=== PATIENT | male | born 1970 | race Caucasian/White ===

== ENCOUNTER 2022-02-15 16:04 | Outpatient (CLI) | payer BC, SELFPAY ==
[2022-02-15 21:29] LABS: Chloride* 102 mmol/L (96-114); Potassium* 4.1 mmol/L (3.6-5.1); Sodium* 139 mmol/L (135-149)
[2022-02-15 21:32] LABS: Blood Urea Nitrogen* 19 mg/dL (7-30); Carbon Dioxide* 31 mmol/L (20-32); Creatinine* 1.2 mg/dL (0.5-1.5); Estimated Glomerular Filt Rate 72.76; Glucose* 82 mg/dL (60-115); Phosphorus* 3.3 mg/dL (2.5-4.5); Uric Acid* 5.8 mg/dL (2.2-8.4)
[2022-02-15 21:58] LABS: Creatinine Urine 88.6 mg/dL
[2022-02-15 22:03] LABS: Microalbumin Creatinine Ratio 130 mg/g (0-30); Microalbumin Urine 12 mg/dL
== END 2022-02-15 16:05 | disposition home or self-care (01) ==
PROVIDERS: Visit Provider Internal Medicine Nephrology
DX: M06.9 Rheumatoid arthritis, unspecified (principal); R80.9 Proteinuria, unspecified
CPT/HCPCS: 80069; 82043; 82570; 84550

== ENCOUNTER 2022-07-27 22:31 | Outpatient (REF) | payer BC, SELFPAY ==
[2022-07-27 23:08] LABS: Basophils Absolute Auto 0.03 K/uL (0.00-0.30); Basophils Percent Auto 0.6 % (0.0-3.0); Eosinophils Absolute Auto 0.19 K/uL (0.00-0.50); Eosinophils Percent Auto 3.6 % (0.0-7.0); Hematocrit 41.4 % (37.0-53.0); Hemoglobin* 13.7 gm/dL (13.5-17.5); Immature Granulocytes Abs Auto 0.02 K/uL (0.00-0.30); Immature Granulocytes Pct Auto 0.4 %; Lymphocytes Absolute Auto 1.27 K/uL (0.90-2.90); Lymphocytes Percent Auto 23.8 % (20-44); Mean Corpuscular HGB Conc 33 gm/dL (32-36); Mean Corpuscular Hemoglobin 32 pg (26-34); Mean Corpuscular Volume 98 fL (80-100); Monocytes Percent Auto 11.4 % (0.0-11.0); Neutrophils Absolute Auto 3.22 K/uL (1.7-7.0); Neutrophils Percent Auto 60.2 % (42.0-72.0); Platelet Count* 224 K/uL (140-440); RDW Coefficient of Variation % 12.6 % (11.5-15.5); Red Blood Count 4.24 m/uL (4.30-5.90); White Blood Count* 5.34 K/uL (4.50-11.00)
[2022-07-27 23:13] LABS: Slide Review Reflex No
[2022-07-27 23:16] LABS: Albumin* 4.3 g/dL (3.3-5.0)
[2022-07-27 23:18] LABS: Creatinine* 1.4 mg/dL (0.5-1.5); Estimated Glomerular Filt Rate 60 ml/min
[2022-07-27 23:19] LABS: Alanine Aminotransferase* 26 U/L (4-50); Aspartate Amino Transferase* 28 U/L (12-35)
== END 2022-07-27 22:32 | disposition home or self-care (01) ==
LOC: NPINS 22:31
PROVIDERS: PCP Internal Medicine Rheumatology; Referring Provider Internal Medicine Rheumatology; Visit Provider Internal Medicine Rheumatology
DX: Z79.899 Other long term (current) drug therapy (principal)
CPT/HCPCS: 82040; 82565; 84450; 84460; 85025

== ENCOUNTER 2023-02-13 07:55 | Outpatient (CLI) | payer BC, SELFPAY | END 2023-02-13 07:56 | disposition home or self-care (01) | LOC: NFLDREF 15:38 | PROVIDERS: PCP Internal Medicine Rheumatology; Referring Provider Internal Medicine Rheumatology; Visit Provider Internal Medicine Nephrology | DX: N18.1 Chronic kidney disease, stage 1 (principal); M06.9 Rheumatoid arthritis, unspecified | CPT/HCPCS: 80069; 82043; 82570; 84550; 86140 ==

== ENCOUNTER 2024-03-05 12:50 | Outpatient (CLI) | payer BC, SELFPAY ==
--- OUTSIDE RECORDS SUMMARY | 2024-03-06 09:22 | XMS_ITS | Continuity of Care Document ---
Author Organization [facility] Address [address] [place] [address] Phone Care Team Providers Care Plater Hot Dip Name Role Phone Juan Steen MD Unavailable Unavailable Allergies, Adverse Reactions, Alerts Substance Reaction Status Criticality No Known Allergies Active No Inform ation Medications Medication Instructions Dosage Effective Dates (start - stop) Status Comments Methotrexate Sodium Oral Tablet 2.5 MG TAKE 4 TABLETS BY MOUTH ONCE WEEKLY - Active Folic Acid Oral Tablet 1 MG TAKE ONE TABLET BY MOUTH IN THE MORNING - Active Procedures Procedure Date Office/Outpatient Visit, Est Complex e/m visit add on Office/Outpatient Visit, Est Routine Venipuncture Assay Of Serum Albumin Assay Of Creatinine Transferase (Ast) (Sgot) Alanine Amino (Alt) (Sgpt) Complete Cbc, Automated Office/Outpatient Visit, Est Routine Venipuncture Assay Of Serum Albumin Assay Of Creatinine Transferase (Ast) (Sgot) Alanine Amino (Alt) (Sgpt) Complete Cbc, Automated Office/Outpatient Visit, Est Routine Venipuncture Assay Of Serum Albumin Assay Of Creatinine Transferase (Ast) (Sgot) Alanine Amino (Alt) (Sgpt) Complete Cbc, Automated Routine Venipuncture Assay Of Serum Albumin Assay Of Creatinine Transferase (Ast) (Sgot) Alanine Amino (Alt) (Sgpt) Complete Cbc WAuto Diff Wbc Office/Outpatient Visit, Est Routine Venipuncture Rbc Sed Rate, Automated Assay Of Serum Albumin Assay Of Creatinine Transferase (Ast) (Sgot) Alanine Amino (Alt) (Sgpt) CReactive Protein Complete Cbc, Automated Office/Outpatient Visit, Est Routine Venipuncture Assay Of Serum Albumin Assay Of Creatinine Transferase (Ast) (Sgot) Alanine Amino (Alt) (Sgpt) Complete Cbc, Automated Office/Outpatient Visit, Est Routine Venipuncture Assay Of Serum Albumin Assay Of Creatinine Transferase (Ast) (Sgot) Alanine Amino (Alt) (Sgpt) Complete Cbc, Automated Office/Outpatient Visit, Est Routine Venipuncture Assay Of Serum Albumin Assay Of Creatinine Transferase (Ast) (Sgot) Alanine Amino (Alt) (Sgpt) Complete Cbc, Automated Office/Outpatient Visit, Est Routine Venipuncture Assay Of Serum Albumin Assay Of Creatinine Transferase (Ast) (Sgot) Alanine Amino (Alt) (Sgpt) Complete Cbc, Automated Office/Outpatient Visit, Est Routine Venipuncture Assay Of Serum Albumin Assay Of Creatinine Transferase (Ast) (Sgot) Alanine Amino (Alt) (Sgpt) Complete Cbc, Automated Office/Outpatient Visit, Est Routine Venipuncture Rbc Sed Rate, Nonautomated Assay Of Serum Albumin Assay Of Creatinine Transferase (Ast) (Sgot) Alanine Amino (Alt) (Sgpt) CReactive Protein Complete Cbc, Automated Office/Outpatient Visit, Est Routine Venipuncture Assay Of Serum Albumin Assay Of Creatinine Transferase (Ast) (Sgot) Alanine Amino (Alt) (Sgpt) Complete Cbc, Automated Office/Outpatient Visit, Est Routine Venipuncture Assay Of Serum Albumin Assay Of Creatinine Transferase (Ast) (Sgot) Alanine Amino (Alt) (Sgpt) Complete Cbc, Automated Office/Outpatient Visit, Est Routine Venipuncture Assay Of Serum Albumin Assay Of Creatinine Transferase (Ast) (Sgot) Alanine Amino (Alt) (Sgpt) Complete Cbc, Automated Office/Outpatient Visit, Est Routine Venipuncture Assay Of Serum Albumin Assay Of Creatinine Transferase (Ast) (Sgot) Alanine Amino (Alt) (Sgpt) Complete Cbc, Automated Office/Outpatient Visit, Est Routine Venipuncture Specimen Handling Assay Of Serum Albumin Assay Of Creatinine Transferase (Ast) (Sgot) Alanine Amino (Alt) (Sgpt) Complete Cbc, Automated Office/Outpatient Visit, Est Routine Venipuncture Assay Of Serum Albumin Assay Of Creatinine Transferase (Ast) (Sgot) Alanine Amino (Alt) (Sgpt) Complete Cbc, Automated Office/Outpatient Visit, Est Routine Venipuncture Assay Of Serum Albumin Assay Of Creatinine Transferase (Ast) (Sgot) Alanine Amino (Alt) (Sgpt) Complete Cbc, Automated Office/Outpatient Visit, Est Routine Venipuncture Assay Of Serum Albumin Assay Of Creatinine Transferase (Ast) (Sgot) Alanine Amino (Alt) (Sgpt) Complete Cbc, Automated Office/Outpatient Visit, Est Routine Venipuncture Complete Cbc, Automated Assay Of Serum Albumin Assay Of Creatinine Transferase (Ast) (Sgot) Alanine Amino (Alt) (Sgpt) Office/Outpatient Visit, Est Routine Venipuncture Complete Cbc, Automated Assay Of Serum Albumin Assay Of Creatinine Transferase (Ast) (Sgot) Alanine Amino (Alt) (Sgpt) Office/Outpatient Visit, Est Routine Venipuncture Complete Cbc, Automated Assay Of Serum Albumin Assay Of Creatinine Transferase (Ast) (Sgot) Alanine Amino (Alt) (Sgpt) Office/Outpatient Visit, Est Routine Venipuncture Complete Cbc, Automated Assay Of Serum Albumin Assay Of Creatinine Transferase (Ast) (Sgot) Alanine Amino (Alt) (Sgpt) Office/Outpatient Visit, Est Routine Venipuncture Complete Cbc, Automated Assay Of Serum Albumin Assay Of Creatinine Transferase (Ast) (Sgot) Alanine Amino (Alt) (Sgpt) Office/Outpatient Visit, Est Routine Venipuncture Complete Cbc WAuto Diff Wbc Assay Of Serum Albumin Assay Of Creatinine Transferase (Ast) (Sgot) Alanine Amino (Alt) (Sgpt) Office/Outpatient Visit, Est Routine Venipuncture Complete Cbc WAuto Diff Wbc Assay Of Serum Albumin Assay Of Creatinine Transferase (Ast) (Sgot) Alanine Amino (Alt) (Sgpt) Office/Outpatient Visit, Est Routine Venipuncture Complete Cbc WAuto Diff Wbc Assay Of Serum Albumin Assay Of Creatinine Transferase (Ast) (Sgot) Alanine Amino (Alt) (Sgpt) Office/Outpatient Visit, Est Routine Venipuncture Complete Cbc WAuto Diff Wbc Assay Of Serum Albumin Assay Of Creatinine Transferase (Ast) (Sgot) Alanine Amino (Alt) (Sgpt) Office/Outpatient Visit, Est Routine Venipuncture Complete Cbc WAuto Diff Wbc Assay Of Serum Albumin Assay Of Creatinine Transferase (Ast) (Sgot) Alanine Amino (Alt) (Sgpt) Office/Outpatient Visit, Est Routine Venipuncture Complete Cbc WAuto Diff Wbc Assay Of Serum Albumin Assay Of Creatinine Transferase (Ast) (Sgot) Alanine Amino (Alt) (Sgpt) Office/Outpatient Visit, Est Routine Venipuncture Complete Cbc WAuto Diff Wbc Assay Of Serum Albumin Assay Of Creatinine Transferase (Ast) (Sgot) Alanine Amino (Alt) (Sgpt) Office/Outpatient Visit, Est Routine Venipuncture Complete Cbc WAuto Diff Wbc Assay Of Serum Albumin Assay Of Creatinine Transferase (Ast) (Sgot) Alanine Amino (Alt) (Sgpt) Office/Outpatient Visit, Est Routine Venipuncture Complete Cbc WAuto Diff Wbc Assay Of Serum Albumin Assay Of Creatinine Transferase Ast Sgot Alanine Amino (Alt) (Sgpt) Office/Outpatient Visit, Est Routine Venipuncture Complete Cbc WAuto Diff Wbc Assay Of Serum Albumin Assay Of Creatinine Transferase Ast Sgot Alanine Amino Alt Sgpt Office/Outpatient Visit, Est Routine Venipuncture Complete Cbc WAuto Diff Wbc Assay Of Serum Albumin Assay Of Creatinine Transferase Ast Sgot Alanine Amino Alt Sgpt Office/Outpatient Visit, Est Routine Venipuncture Complete Cbc WAuto Diff Wbc Assay Of Serum Albumin Assay Of Creatinine Transferase Ast Sgot Alanine Amino Alt Sgpt Office/Outpatient Visit, Est Routine Venipuncture Complete Cbc WAuto Diff Wbc Assay Of Serum Albumin Assay Of Creatinine Transferase Ast Sgot Alanine Amino Alt Sgpt Office/Outpatient Visit, Est X-Ray Exam Of Foot 2v XRay Exam Of Hand 3v Routine Venipuncture Specimen Handling CReactive Protein Complete Cbc WAuto Diff Wbc Rbc Sed Rate, Nonautomated Assay Of Serum Albumin Assay Of Creatinine Transferase Ast Sgot Alanine Amino Alt Sgpt Office/Outpatient Visit, [facility] Results Test Name Date and Time Measure Units Reference Range Abnormal Flag Status Comments Panel Description: CBC no diff - [place] Final WBC 4 10:29:00 4.2 K/uL 4.0-10.0 Final RBC 4 10:29:00 4.55 M/uL 4.50-6.50 Final Hemoglobin 4 10:29:00 14.9 g/dL 13.0-17.0 Final Hematocrit 4 10:29:00 44.5 % 40.0-54.0 Final MCV 4 10:29:00 98 fL 80-100 Final MCH 4 10:29:00 32.8 pg 27.0-32.0 H Final MCHC 4 10:29:00 33.6 g/dL 32.0-36.0 Final RDW 4 10:29:00 12.2 % 11.0-16.0 Final Platelet Count 4 10:29:00 227 K/uL 150-500 Final MPV 4 10:29:00 7.7 fL 6.0-11.0 Final Panel Description: DMARD Final AST 4 11:15:00 30 U/L 10-40 Final ALT 4 11:15:00 26 IU/L 9-46 Final Creatinine 4 11:15:00 1.400 mg/dL 0.600-1.350 H Final ALB 4 11:15:00 4.5 g/dL 3.6-5.1 Final GFR 4 11:15:00 56.1 mL/min/1.7 3 m2 Final Advance Directives Directive Yes / No Effective Date File Name No Information Encounters Encounter Description Practice Location Reason(s) For Visit Diagnoses Date Provider Providers Copied on Encounter Office/Outpa tient Visit, Est [facility] , [address], [place], [place], [address], [place] tel:[phone] [facility] , Rheumatoid arthritis (chief complaint) LeukopeniaSe ropositive RAProteinuri aElevated liver enzymesAtrium Health [facility]burg lingHigh risk medication monitoring 4 Celsa Martinez. [facility] [address], [place], [place], [address], [place]. tel:[phone] Referring Provider: Juan Acevedo, [facility] [address], [place], [address]. tel:[phone] [facility] , [address], [place], [address], [place] tel:[phone] [facility] No Information 4 Celsa Martinez. [facility] [address], [place], [place], [address], [place]. tel:[phone] Office/Outpa tient Visit, Est [facility] , [address], [place], [place], [address], [place] tel:[phone] [facility] , Rheumatoid arthritis (chief complaint) LeukopeniaSe ropositive RABone healthCounse lingHigh risk medication monitoringEl evated liver enzymesProte inuria Oct- 4 Celsa Martinez. [facility] [address], [place], [address], [place]. tel:[phone] Referring Provider: Juan Acevedo, [facility] [address], [place], [address]. tel:[phone] [facility] , [address], [place], [address], [place] tel:[phone] [facility] , No Information 4 Celsastephon Martinez. [facility] [address], [place], [address], [place]. tel:[phone] Office/Outpa tient Visit, Est [facility] , [address], [place], [address], [place] tel:[phone] [facility] , Rheumatoid arthritis (chief complaint) LeukopeniaSe ropositive RABone healthCounse lingHigh risk medication monitoringEl evated liver enzymesProte inuria Jun- 3 Celsa Martinez. [facility] [address], [place], [address], [place]. tel:[phone] Referring Provider: Juan Acevedo, [facility] [address], [place], [address]. tel:[phone] Office/Outpa tient Visit, Est [facility] , [address], [place], [address], [place] tel:[phone] [facility] , Rheumatoid arthritis (chief complaint) LeukopeniaSe ropositive RABone healthCounse lingHigh risk medication monitoringEl evated liver enzymesLater al epicondyliti s, right elbow 3 Celsa Martinez. [facility] [address], [place], [address], [place]. tel:[phone] Referring Provider: Juan Acevedo, [facility] [address], [place], [address]. tel:[phone] [facility] , [address], [place], [address], [place] tel:[phone] [facility] , No Information 3 Celsa Martinez. [facility] [address], [place], [address], [place]. tel:[phone] Referring Provider: Juan Acevedo, [facility] [address], [place], [address]. tel:[phone] Office/Outpa tient Visit, Est [facility] , [address], [place], [address], [place] tel:[phone] [facility] , Rheumatoid arthritis (chief complaint) LeukopeniaSe ropositive RABone healthCounse lingHigh risk medication monitoringEl evated liver enzymes 3 Celsa Martinez. [facility] [address], [place], [address], [place]. tel:[phone] Referring Provider: Juan Acevedo, [facility] [address], [place], [address]. tel:[phone] Office/Outpa tient Visit, Est [facility] , [address], [place], [address], [place] tel:[phone] [facility] , Rheumatoid arthritis (chief complaint) Seropositive RABone healthCounse lingHigh risk medication monitoringBaptist Health Medical Center 2 Celsa Martinez. [facility] [address], [place], [address], [place]. tel:[phone] Referring Provider: Juan Acevedo, [facility] [address], [place], [address]. tel:[phone] Office/Outpa tient Visit, Est [facility] , [address], [place], [address], [place] tel:[phone] [facility] , Rheumatoid arthritis (chief complaint) Seropositive RABone healthCounse lingHigh risk medication monitoring 2 Celsa Martinez. [facility] [address], [place], [address], [place]. tel:[phone] Referring Provider: Juan Acevedo, [facility] [address], [place], [address]. tel:[phone] Office/Outpa tient Visit, Est [facility] , [address], [place], [address], [place] tel:[phone] [facility] , Rheumatoid arthritis (chief complaint) Seropositive RABone healthCounse lingHigh risk medication monitoring 2 Celsa Martinez. [facility] [address], [place], [address], [place]. tel:[phone] Referring Provider: Juan Acevedo, [facility] [address], [place], [address]. tel:[phone] Office/Outpa tient Visit, Est [facility] , [address], [place], [address], [place] tel:[phone] [facility] , Rheumatoid arthritis (chief complaint) Seropositive RABone healthCounse lingHigh risk medication monitoring 1 Celsa Martinez. [facility] [address], [place], [address], [place]. tel:[phone] Referring Provider: Juan Acevedo, [facility] [address], [place], [address]. tel:[phone] Office/Outpa tient Visit, Est [facility] , [address], [place], [address], [place] tel:[phone] [facility] , Rheumatoid arthritis (chief complaint) Seropositive RABone healthHigh risk medication monitoringBu rsitis of unspecified shoulderCoun seling 1 Celsa Martinez. [facility] [address], [place], [address], [place]. tel:[phone] Referring Provider: Juan Acevedo, [facility] [address], [place], [address]. tel:[phone] Office/Outpa tient Visit, Est [facility] , [address], [place], [address], [place] tel:[phone] [facility] , Rheumatoid arthritis (chief complaint) Seropositive RABone healthHigh risk medication monitoringBu rsitis of unspecified shoulderCoun seling 1 Celsa Martinez. [facility] [address], [place], [address], [place]. tel:[phone] Referring Provider: Juan Acevedo, [facility] [address], [place], [address]. tel:[phone] Office/Outpa tient Visit, Est [facility] , [address], [place], [address], [place] tel:[phone] [facility] , Rheumatoid arthritis (chief complaint) Seropositive RABone healthHigh risk medication monitoringBu rsitis of unspecified shoulder 0 Celsa Martinez. [facility] [address], [place], [address], [place]. tel:[phone] Referring Provider: Juan Acevedo, [facility] [address], [place], [address]. tel:[phone] Office/Outpa tient Visit, Est [facility] , [address], [place], [address], [place] tel:[phone] [facility] , Rheumatoid arthritis (chief complaint) Seropositive RABone healthHigh risk medication monitoringBu rsitis of unspecified shoulder 0 Celsa Martinez. [facility] [address], [place], [address], [place]. tel:[phone] Referring Provider: Juan Acevedo, [facility] [address], [place], [address]. tel:[phone] Office/Outpa tient Visit, Est [facility] , [address], [place], [address], [place] tel:[phone] [facility] , Rheumatoid arthritis (chief complaint) Seropositive RABone healthHigh risk medication monitoringBu rsitis of unspecified shoulder 0 Celsa Martinez. [facility] [address], [place], [address], [place]. tel:[phone] Referring Provider: Juan Acevedo, [facility] [address], [place], [address]. tel:[phone] Office/Outpa tient Visit, Est [facility] , [address], [place], [address], [place] tel:[phone] [facility] , Rheumatoid arthritis (chief complaint) Seropositive RABone healthHigh risk medication monitoring 9 Celsa Martinez. [facility] [address], [place], [address], [place]. tel:[phone] Referring Provider: Juan Acevedo, [facility] [address], [place], [address]. tel:[phone] Office/Outpa tient Visit, Est [facility] , [address], [place], [address], [place] tel:[phone] [facility] , Rheumatoid arthritis (chief complaint) Seropositive RABone healthHigh risk medication monitoring 9 Celsa Martinez. [facility] [address], [place], [address], [place]. tel:[phone] Referring Provider: Juan Acevedo, [facility] [address], [place], [address]. tel:[phone] Office/Outpa tient Visit, Est [facility] , [address], [place], [address], [place] tel:[phone] [facility] , Rheumatoid arthritis (chief complaint) Seropositive RABone healthHigh risk medication monitoring 9 Celsa Martinez. [facility] [address], [place], [address], [place]. tel:[phone] Referring Provider: Juan Acevedo, [facility] [address], [place], [address]. tel:[phone] Office/Outpa tient Visit, Est [facility] , [address], [place], [address], [place] tel:[phone] [facility] , Rheumatoid arthritis (chief complaint) Seropositive RABone healthHigh risk medication monitoring 8 Celsa Martinez. [facility] [address], [place], [address], [place]. tel:[phone] Referring Provider: Juan Acevedo, [facility] [address], [place], [address]. tel:[phone] Office/Outpa tient Visit, Est [facility] , [address], [place], [address], [place] tel:[phone] [facility] , Rheumatoid arthritis (chief complaint) Seropositive RABone healthHigh risk medication monitoring 8 Celsa Martinez. [facility] [address], [place], [address], [place]. tel:[phone] Referring Provider: Juan Acevedo, [facility] [address], [place], [address]. tel:[phone] Office/Outpa tient Visit, Est [facility] , [address], [place], [address], [place] tel:[phone] [facility] , Rheumatoid arthritis (chief complaint) Seropositive RABone healthHigh risk medication monitoring 8 Celsa Martinez. [facility] [address], [place], [address], [place]. tel:[phone] Referring Provider: Juan Acevedo, [facility] [address], [place], [address]. tel:[phone] Office/Outpa tient Visit, Est [facility] , [address], [place], [address], [place] tel:[phone] [facility] , Rheumatoid arthritis (chief complaint) LeukopeniaSe ropositive RABone healthHigh risk medication monitoringPa in in rt toe 7 Celsa Martinez. [facility] [address], [place], [address], [place]. tel:[phone] Referring Provider: Juan Acevedo, [facility] [address], [place], [address]. tel:[phone] Office/Outpa tient Visit, Est [facility] , [address], [place], [address], [place] tel:[phone] [facility] , Rheumatoid arthritis (chief complaint) LeukopeniaSe ropositive RABone healthHigh risk medication monitoringPa in in ankle 7 Celsa Martinez. [facility] [address], [place], [address], [place]. tel:[phone] Referring Provider: Juan Acevedo, [facility] [address], [place], [address]. tel:[phone] Office/Outpa tient Visit, Est [facility] , [address], [place], [address], [place] tel:[phone] [facility] , Rheumatoid arthritis (chief complaint) LeukopeniaSe ropositive RABone healthHigh risk medication monitoring 7 [facility] [address], [place], [address], [place]. tel:[phone] Referring Provider: Juan Acevedo, [facility] [address], [place], [address]. tel:[phone] Office/Outpa tient Visit, Est [facility] , [address], [place], [address], [place] tel:[phone] [facility] , LeukopeniaBo ne healthHigh risk medication monitoringSe ropositive RAAchilles tendinitis of leg [facility] Juan. [facility] [address], [place], [address], [place]. tel:[phone] Referring Provider: Juan Acevedo, [facility] [address], [place], [address]. tel:[phone] Office/Outpa tient Visit, Est [facility] , [address] [address], [place], [address], [place] tel:[phone] [facility] , Rheumatoid arthritis (chief complaint) LeukopeniaBo ne healthHigh risk medication monitoringSe ropositive RAAchilles tendinitis of legPain in right toe 6 [facility] [address], [place], [address], [place]. tel:[phone] Referring Provider: Juan Acevedo, [facility] [address], [place], [address]. tel:[phone] Office/Outpa tient Visit, Est [facility] , [address], [place], [address], [place] tel:[phone] [facility] , Rheumatoid arthritis (chief complaint) LeukopeniaBo ne healthHigh risk medication monitoringSe ropositive RAAchilles tendinitis of leg Fe Celsastephon Martinez. [facility] [address], [place], [address], [place]. tel:[phone] Referring Provider: Juan Acevedo, [facility] [address], [place], [address]. tel:[phone] Office/Outpa tient Visit, Est [facility] , [address], [place], [address], [place] tel:[phone] [facility] , Rheumatoid arthritis (chief complaint) Seropositive RABone healthHigh risk medication monitoringLe ukopenia Celsastephon Martinez. [facility] [address], [place], [address], [place]. tel:[phone] Referring Provider: Juan Acevedo, [facility] [address], [place], [address]. tel:[phone] Office/Outpa tient Visit, [facility] , [address], [place], [address], [place] tel:[phone] [facility] , Rheumatoid arthritis (chief complaint) Rheumatoid ArthritisThe rapeutic Drug MonitoringBo [facility] 5 Celsa Martinez. [facility] [address], [place], [address], [place]. tel:[phone] Referring Provider: Juan Acevedo, [facility] [address], [place], [address]. tel:[phone] Office/Outpa tient Visit, Est [facility] , [address], [place], [address], [place] tel:[phone] [facility] , Rheumatoid arthritis (chief complaint) Rheumatoid ArthritisThe rapeutic Drug MonitoringBo [facility] 5 Celsa Martinez. [facility] [address], [place], [address], [place]. tel:[phone] Referring Provider: Juan Acevedo, [facility] [address], [place], [address]. tel:[phone] Office/Outpa tient Visit, Est [facility] , [address], [place], [address], [place] tel:[phone] [facility] , Rheumatoid Arthritis (chief complaint) Rheumatoid ArthritisOth er specified [facility]apeut[facility] MonitoringBa [facility] 4 Celsa Martinez. [facility] [address], [place], [address], [place]. tel:[phone] Referring Provider: Juan Acevedo, [facility] [address], [place], [address]. tel:[phone] Office/Outpa tient Visit, [facility] , [address], [place], [address], [place] tel:[phone] [facility] , Rheumatoid Arthritis (chief complaint) Rheumatoid ArthritisOth er specified counselingTh erapeutic Drug Monitoring 4 Celsa Martinez. [facility] [address], [place], [address], [place]. tel:[phone] Referring Provider: Juan Acevedo, [facility] [address], [place], [address]. tel:[phone] Office/Outpa tient Visit, Est [facility] , [address], [place], [address], [place] tel:[phone] [facility] , Rheumatoid Arthritis (chief complaint) Rheumatoid ArthritisOth er specified counselingTh erapeutic Drug Monitoring 4 Celsa Martinez. [facility] [address], [place], [address], [place]. tel:[phone] Referring Provider: Juan Acevedo, [facility] [address], [place], [address]. tel:[phone] Office/Outpa tient Visit, Est [facility] , [address], [place], [address], [place] tel:[phone] [facility] , Rheumatoid Arthritis (chief complaint) Rheumatoid ArthritisOth er specified counselingTh erapeutic Drug MonitoringMe dial epicondyliti s 3 Celsa Martinez. [facility] [address], [place], [address], [place]. tel:[phone] Referring Provider: Juan Acevedo, [facility] [address], [place], [address]. tel:[phone] Office/Outpa tient Visit, Est [facility] , [address], [place], [address], [place] tel:[phone] [facility] , Rheumatoid Arthritis (chief complaint) Rheumatoid ArthritisOth er specified counselingTh erapeutic Drug Monitoring 3 Celsa Martinez. [facility] [address], [place], [address], [place]. tel:[phone] Referring Provider: Juan Acevedo, [facility] [address], [place], [address]. tel:[phone] Office/Outpa tient Visit, Est [facility] , [address], [place], [address], [place] tel:[phone] [facility] , Rheumatoid Arthritis (chief complaint) Rheumatoid ArthritisOth er specified counselingTh erapeutic Drug Monitoring 3 Celsa Martinez. [facility] [address], [place], [address], [place]. tel:[phone] Referring Provider: Juan Acevedo, [facility] [address], [place], [address]. tel:[phone] Office/Outpa tient Visit, Est [facility] , [address], [place], [address], [place] tel:[phone] [facility] , Rheumatoid Arthritis (chief complaint) Rheumatoid ArthritisThe rapeutic Drug MonitoringOt her specified counseling 3 Celsa Martinez. [facility] [address], [place], [address], [place]. tel:[phone] Referring Provider: Juan Acevedo, [facility] [address], [place], [address]. tel:[phone] Office/Outpa tient Visit, Est [facility] , [address], [place], [address], [place] tel:[phone] [facility] , Rheumatoid Arthritis (chief complaint) Rheumatoid ArthritisOth [facility] 2 Celsa Martinez. [facility] [address], [place], [address], [place]. tel:[phone] Referring Provider: Juan Acevedo, [facility] [address], [place], [address]. tel:[phone] Office/Outpa tient Visit, Est [facility] , [address], [place], [address], [place] tel:[phone] [facility] , No Information 2 Celsa Martinez. [facility] [address], [place], [address], [place]. tel:[phone] Referring Provider: Juan Acevedo, [facility] [address], [place], [address]. tel:[phone] Office/Outpa tient Visit, New [facility] , [address], [place], [address], [place] tel:[phone] [facility] , No Information 2 Celsa Martinez. [facility] [address], [place], [address], [place]. tel:[phone] Referring Provider: David Diaz, [facility] [address] [place] [address], [address]. tel:[phone] Family History Family Member Type Diagnosis Age At Onset maternal grandfather Problem (finding) rheumatoid arth ritis paternal grandmother Problem (finding) rheumatoid arth ritis Payers Payer name Insurance type Covered constitution party ID Delilah gonzales(s) [facility] [id number] Social History Type Description Quantity Date Captured Comments Alcohol Use Details beer 5 drinks weekly Caffeine Use Details Unknown Tobacco Use Status Ex-user of moist powdered tobacco Smoking Status Unknown if ever smoked Non-Smoking Tobacco Use Details Chewing: No Details Available Chewing: No Details Available Sex Male Vital Signs Date / Time: Height Weight BMI Pulse Rate Blood Pressure Temperature Respiratory Rate Body Surface Area Head Circumference Head Circ. Percentile Wt./Lon. Percentile BMI percentile Pulse Ox Inhaled Ox 9:45 AM 70.67 in 84.822 kg (187.00 lbs) 26.3 3 kg/m eter (2) 115/73 mm[Hg] 98.00 F Chief Complaint And Reason For Visit From encounter dated '03/04/2024 09:45'. Rheumatoid arthritis (chief complaint) Reason For Referral Reason For Referral No Information Plan Of Treatment Date Type Action Status Goal Tobacco cessation counseling completed Referral Ordered: [facility] -Physical Medicine and Rehabilitation (related to Bursitis of unspecified shoulder) ordered Referral Referred To: [facility] [address] [place], [phone] Ordered: Referrals: [facility] Medicine [facility] Rehabilitation. [facility]. Evaluate and treat ordered Referral Ordered: [facility] (related to Pain in rt toe) ordered Referral Referred To: [facility] [address] [place], [place] [phone] Ordered: Referrals: [facility]. Evaluate and treat ordered Appointment Oziel Dior BOOKED History Of Present Illness Encounter Date Complaint History Of Prese nt Illness Rheumatoid arthritis Rheumatoid arthritis Rheumatoid arthritis Rheumatoid arthritis Rheumatoid arthritis Rheumatoid arthritis Rheumatoid arthritis Rheumatoid arthritis Rheumatoid arthritis Rheumatoid arthritis Rheumatoid arthritis Rheumatoid arthritis Rheumatoid arthritis Rheumatoid arthritis Rheumatoid arthritis Rheumatoid arthritis Rheumatoid arthritis Rheumatoid arthritis Rheumatoid arthritis Rheumatoid arthritis Rheumatoid arthritis Rheumatoid arthritis Rheumatoid arthritis Rheumatoid arthritis Rheumatoid arthritis Rheumatoid arthritis Rheumatoid arthritis Rheumatoid arthritis Functional Status Date Functional Assessmen t Pain Score /10 Instructions Date Instruction Additional Infor mation No Information Assessments Type Assessment Date assessment Leukopenia assessment Seropositive RA assessment Proteinuria assessment Elevated liver enzymes assessment Bone health assessment Counseling assessment High risk medication monitoring Patient Care Teams Name Effective Dates (start - stop) Status Members No Information
--- OUTSIDE RECORDS SUMMARY | 2024-03-06 09:22 | XMS_ITS | Clinical Summary ---
Author Organization [facility] Address [address] [place] [address] Care Team Providers Care Laboratory Associate Name Role Phone Unavailable Primary Care Provider Unavailabl e Resolved Problems Problem Noted Date Diagnosed Date Resolved Date Chronic pain of both shoulders 10/27/2020 02/07/2021 Social History Tobacco Use Types Packs/Day Years Used Date Smoking Tobacco: Never Assessed Adolescent Education Answer Date Record ed Getting School Help Needed Not on file 05/26 Sex and Gender Information Value Date Recorded Sex Assigned at Not on file Gender Identity Not on file Sexual Orientation Not on file Plan of Treatment Not on file
--- OUTSIDE RECORDS SUMMARY | 2024-03-06 09:22 | XMS_ITS | Referral Summary ---
Author Organization [facility] Address [address] [place] [address] Care Team Providers Care Newscast Producer Name Role Phone Unavailable Primary Care Provider [...]
== END 2024-03-05 12:51 | disposition home or self-care (01) ==
LOC: NFLDREF 03-06 09:20
PROVIDERS: PCP Internal Medicine Rheumatology; Referring Provider Internal Medicine Rheumatology; Visit Provider Internal Medicine Nephrology
DX: N18.1 Chronic kidney disease, stage 1 (principal); M06.9 Rheumatoid arthritis, unspecified
CPT/HCPCS: 80061; 80069; 82043; 82570; 82728; 83540; 83550; 84450; 84460; 84550; 86140

== ENCOUNTER 2024-09-15 08:33 | Outpatient (CLI) | payer BC, SELFPAY | END 2024-09-15 08:34 | disposition home or self-care (01) | LOC: NFLDREF 09-16 02:02 | PROVIDERS: PCP Internal Medicine Rheumatology; Referring Provider Internal Medicine Rheumatology; Visit Provider Internal Medicine Nephrology | DX: N18.1 Chronic kidney disease, stage 1 (principal) | CPT/HCPCS: 80061; 80069; 82043; 82570; 83970; 84450; 84460; 84550; 86140 ==

== ENCOUNTER 2025-03-16 08:29 | Outpatient (CLI) | payer BC, SELFPAY | END 2025-03-16 08:30 | disposition home or self-care (01) | LOC: NFLDREF 03-18 10:30 | PROVIDERS: PCP Internal Medicine Rheumatology; Referring Provider Internal Medicine Rheumatology; Visit Provider Internal Medicine Nephrology | DX: N18.1 Chronic kidney disease, stage 1 (principal); R80.9 Proteinuria, unspecified; M06.9 Rheumatoid arthritis, unspecified | CPT/HCPCS: 80061; 80069; 82043; 82570; 84450; 84460; 84550; 86140 ==